=== PATIENT | male | born 1990 | race Caucasian/White ===

== ENCOUNTER 2018-11-10 00:38 | Emergency (ER) | payer OTHER ==
[~2018-11-10] VITALS: Ht 190.5 cm; Wt 75.0 kg
[2018-11-10 01:00] LABS: MEAN CORPUSCULAR HEMOGLOBIN 30.6 pg (27.5-34.5); MEAN CORPUSCULAR HGB CONC 33.4 g/dL (33.2-36.2); MEAN CORPUSCULAR VOLUME 91.6 fL (81-97); MEAN PLATELET VOLUME 8.2 fL (7.4-10.4); PLATELET COUNT 295 x10^3/uL (130-400); RED BLOOD COUNT 5.21 x10^6/uL (4.38-5.82); RED CELL DISTRIBUTION WIDTH 13.1 % (9.4-14.8)
--- NOTE | 2018-11-10 01:05 | NUR ---
PIPPA. REPORT RECEIVED FROM EMS/[facility]. +ETOH. PT WAS NAKID AND RUNNING ON [address] [employer] FOUND PT. PT HAS ABRASION ALL OVER THE BODY BECAUSE PT WAS HIDING IN [place]. PT TALKING BY HIMSELF. ALL MONITORS IN PLACE. CALL LIGHT WITHIN REACH. EDMD AT BEDSIDE TO ASSESS. PT DENIES ANY PAIN/SI/HI AT THIS TIME. SITTER MONITORING FROM HALLWAY FOR SAFETY.
[2018-11-10 01:13] LABS: ALANINE AMINOTRANSFERASE 38 U/L (12-78); ANION GAP 17 mmol/L (5-15); BASOPHILS # (AUTO) 0.01 x10^3/uL (0-0.1); BASOPHILS % (AUTO) 0 % (0-1); CALCIUM 9.3 mg/dL (8.5-10.1); CHLORIDE 101 mmol/L (98-107); CREATININE 1.39 mg/dL (0.7-1.3); EOSINOPHILS # (AUTO) 0.03 x10^3/uL (0-0.4); EOSINOPHILS % (AUTO) 0 % (1-7); LYMPHOCYTES # (AUTO) 1.23 x10^3/uL (1-3.4); LYMPHOCYTES % (AUTO) 5 % (22-44); MD SCAN; MONOCYTES % (AUTO) 5 % (2-9); NEUTROPHILS # (AUTO) 22.11 x10^3/uL (1.8-6.8); NEUTROPHILS % (AUTO) 90 % (42-75); SALICYLATE LEVEL 1.9 mg/dL (2.8-20.0)
[2018-11-10 01:15] LABS: ALKALINE PHOSPHATASE 67 U/L (45-117); BILIRUBIN,TOTAL 0.4 mg/dL (0.2-1.0); TOTAL PROTEIN 8.6 g/dL (6.4-8.2)
[2018-11-10 01:23] LABS: ACETAMINOPHEN < 2 mcg/mL (10-30)
--- NOTE | 2018-11-10 01:46 | NUR ---
pt resting in [facility]. resps even and unlabored. pt provided some water. sitter monitoring from [facility] for safety.
--- NOTE | 2018-11-10 02:46 | NUR ---
REPORT GIVEN TO SUMAN MONTIEL.
--- NOTE | 2018-11-10 02:50 | NUR ---
urine sample taken to lab
--- NOTE | 2018-11-10 02:56 | NUR ---
late entry 0242- assumed care, report received from tristin stinson. pt transferred to ed room 40. room secured, garage doors down, sitter at doorway for continous monitoring.
[2018-11-10 03:08] VITALS: BP 132/76
[2018-11-10] MEDS ORDERED: ZIPRASIDONE 20 MG INJ IM ONE ×2 (03:20→03:30)
[2018-11-10 03:22] LABS: AMPHETAMINE SCREEN, URINE Negative (Negative); BARBITURATE SCREEN, URINE Negative (Negative); BENZODIAZEPINE SCREEN, URINE Negative (Negative); CANNABINOID SCREEN, URINE Positive (Negative); COCAINE SCREEN, URINE Negative (Negative); METHADONE SCREEN, URINE Negative (Negative); OPIATE SCREEN, URINE Negative (Negative)
--- NOTE | 2018-11-10 03:26 | NUR ---
pt tearful and using loud voice, pt at doorway of room, stated " i want to leave", discussed poc with pt, pt remains remains anxious and at doorway of room. he stated " why do i have to stay her, i'm leaving". reminded pt of legal hold and pt became more tearful. erp updated on pt status, order received for prn medication. pt agreed to receiving medication, medication given per aug.
--- NOTE | 2018-11-10 04:22 | NUR ---
pt resting calmly with eyes closed, opens eyes easily to verbal response, denies needs, sitter at doorway for continous monitoring
--- NOTE | 2018-11-10 05:08 | NUR ---
pt resting with eyes closed, nadn, equal chest rise/fall observed, sitter at doorway for continous monitroing
--- NOTE | 2018-11-10 06:15 | NUR ---
pt sitting up in bed, nad, registration at bedside, pt denies needs, sitter at bedside for continous monitroing.
--- NOTE | 2018-11-10 06:40 | NUR ---
pt's (shona) on telephone, left her phone contact number ([phone]) and requested that her calls her. pt up to use telephone with sitter at his side
--- NOTE | 2018-11-10 06:58 | NUR ---
report given to tristin mckeon
--- NOTE | 2018-11-10 07:32 | NUR ---
BEDSIDE REPORT FROM SUMAN RN. PATIENT SLEEPING COMFORTABLY ON GURNEY DENIES COMPLAINTS AT THIS TIME BREAKFAST ORDERED UPDATED ON ESTIMATED POC PATIENT A LEGAL HOLD ROOM SECURED W/ [employer] SITTER AT DOORWAY FOR CONTINUOUS MONITORING
--- NOTE | 2018-11-10 08:15 | NUR ---
PATIENT ROUSED FOR RE-ASSESSMENT PATIENT CALM/COMPLETELY ORIENTED. PROVIDER TO RE-ASSESS READINESS FOR D/C pROVIDER COMFORTABLE DISCHARGING/BACKEND TESTER AGREEABLE PATIENT ABRASIONS CLEANSED/DRESSED WITH BACITRACIN/NON STICK DRESSINGS GIVEN BREAKFAST-HE ATE THE ENTIRE TRAY PROVIDED WITH CHANGE OF CLOTHES & TAXI VOUCHER BACKEND TESTER PATIENT SPOKE AT LENGTH ABOUT AVOIDING ILLICITS/IMPORTANCE OF FILING POLICE REPORT IF HE FEELS COMFORTABLE DOING SO-PATIENT REPORT'S I NEED TO TALK TO MY FRIENDS THEN I WILL PROCEED NECCESSARY."
== END 2018-11-10 09:06 | disposition home or self-care (01) ==
LOC: ED 06:29
DX: F29 Unspecified psychosis not due to a substance or known physiological condition (principal); F24 Shared psychotic disorder; F15.129 Other stimulant abuse with intoxication, unspecified; Z72.9 Problem related to lifestyle, unspecified
CPT/HCPCS: 36415; 80053; 80307; 85025; 96372; 99284; J3486